=== PATIENT | female | born 1995 | race Caucasian/White ===

== ENCOUNTER 2022-02-19 08:10 | Emergency (ER) | payer OTHER, SELFPAY ==
--- NOTE | 2022-02-19 08:13 | ED.URI ---
HPI - URI/Sore Throat General Chief Complaint: Upper Respiratory Infection Stated Complaint: Chest Congestion/Headache Time Seen by Provider: 02/19/22 08:14 Source: patient and RN notes reviewed History of Present Illness HPI Narrative: patient is a 26-year-old female presents to urgent care with complaints of congestion and headache. Patient states that symptoms started on Thursday and she has been using Mucinex and Vicks. Patient has had some chills and sweats without known fever. Denies any nausea or vomiting. Denies any history of ill contacts. No other acute complaints. No acute distress noted. Patient aware of the plan of care. Some parts of this dictation were generated by voice recognition software and may contain typographical and/or grammatical inaccuracies. Related Data Allergies Allergy/AdvReac Type Severity Reaction Status Date / Time No Known Allergies Allergy Verified 02/19/22 08:23 Review of Systems Review of Systems: CONSTITUTIONAL: reports of chills sweats with subjective fever EYES: Denies visual changes, redness, or discharge. ENT: Reports of sinus congestion, pressure. Reports postnasal drainage CARDIOVASCULAR: Denies chest pain, palpitations, or edema. RESPIRATORY: reports of cough dyspnea GASTROINTESTINAL: Denies abdominal pain, nausea, vomiting, or diarrhea. GENITOURINARY: Denies dysuria or hematuria. SKIN: Denies rash or itching. MUSCULOSKELETAL: Denies back pain, joint pain, or myalgia. NEUROLOGIC: Denies headache, numbness, or weakness. All other systems reviewed are negative, except as documented in HPI. PMFSH Comments At the time of my signature, I reviewed and agree with the nursing past medical, surgical, social, and family history. There is no relevant family history pertinent to the patient complaint. Exam Narrative: GENERAL: This is a well-nourished, well-developed patient, in no apparent distress. HEAD: normocephalic, atraumatic. EYES: PERRL. Sclera clear/white. Vision is grossly intact. EARS: External ears normal, auditory canals clear and without drainage, TMs normal without perforation. Hearing grossly intact. NOSE: External nose normal with no obvious nasal discharge, bilateral erythema nares with clear yellow rhinorrhea S THROAT: Mucous membranes moist, mild erythema in the posterior oropharynx with moderate postnasal drainage NECK: Neck supple, non-tender without lymphadenopathy CARDIOVASCULAR: Regular rate and rhythm without murmurs, gallops, or rubs. RESPIRATORY: Clear to auscultation. Breath sounds equal bilaterally. No wheezes, rales, or rhonchi. SKIN: warm, intact with no suspicious lesions or rash, good texture and turgor. NEURO: awake, alert, and oriented to person, place and time. There were no obvious focal neurologic abnormalities. EXTREMITIES: No clubbing, cyanosis, or edema. Course Course Level of Care: Express Care Visit Vital Signs Vital signs: Vital Signs Temperature 97.1 F L 02/19/22 08:18 Pulse Rate 98 02/19/22 08:18 Respiratory Rate 16 02/19/22 08:18 Blood Pressure 117/74 02/19/22 08:18 Pulse Oximetry 99 02/19/22 08:18 Oxygen Delivery Room Air 02/19/22 08:18 Temperature 97.1 F L 02/19/22 08:18 Pulse Rate 98 02/19/22 08:18 Respiratory Rate 16 02/19/22 08:18 Blood Pressure 117/74 02/19/22 08:18 Pulse Oximetry 99 02/19/22 08:18 Oxygen Delivery Room Air 02/19/22 08:18 reviewed MDM - URI/Sore Throat MDM Narrative Medical decision making narrative: advised patient to use a daily antihistamine such as Zyrtec or Claritin. Use Flonase and Benadryl prior to bedtime. Use a humidifier at night. If your concerns with COVID, would recommend waiting 3 days before using an [id number] COVID test. Quarantine is 5 days from symptom onset. Use Tylenol/ ibuprofen as needed. Complete the steroid regimen as prescribed. Would recommend continuing the Mucinex without Sudafed. Follow up with her PCP within 2-5
[2022-02-19 08:18] VITALS: BP 117/74; PULSE 98; RESP 16; TEMP 36.2; O2SAT 99
== END 2022-02-19 08:32 | disposition home or self-care (01) ==
PROVIDERS: Emergency Provider Nurse Practitioner Family; PCP Family Medicine
DX: J06.9 Acute upper respiratory infection, unspecified (principal)
CPT/HCPCS: 99203; G0463

== ENCOUNTER 2022-10-13 13:16 | Emergency (ER) | payer OTHER, SELFPAY ==
[2022-10-13 13:20] VITALS: BP 118/81; PULSE 84; RESP 20; TEMP 36.4; O2SAT 99
--- NOTE | 2022-10-13 13:53 | ED.NAVMDI ---
HPI - Nausea/Vomiting/Diarrhea General Chief complaint: Nausea/Vomiting/Diarrhea Stated complaint: nausea / diarrhea/fever/headache Time Seen by Provider: 10/13/22 13:53 Source: patient and RN notes reviewed Mode of arrival: ambulatory Limitations: no limitations History of Present Illness HPI Narrative: 27-year-old female presents with concern for 2 day history of nausea, vomiting, diarrhea. She also reports headache. She reports sweats. Denies fever, aches, chills. She denies known sick contacts. 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 She denies nasal congestion, rhinorrhea, sore throat, cough MD elicited complaint: nausea, vomiting and diarrhea Related Data Home Medications Medication Instructions Recorded Confirmed clonazepam 0.5 mg tablet mg 10/13/22 Allergies Allergy/AdvReac Type Severity Reaction Status Date / Time No Known Allergies Allergy Verified 02/19/22 08:23 Review of Systems Review of Systems: CONSTITUTIONAL: Denies malaise, chills, or fever. Reports sweats ENT: Denies rhinorrhea, congestion, sinus pain, otalgia or sore throat. CARDIOVASCULAR: Denies chest pain, palpitations, or edema. RESPIRATORY: Denies cough or dyspnea. GASTROINTESTINAL: Denies abdominal pain. Reports nausea, vomiting, diarrhea GENITOURINARY: Denies dysuria or hematuria. MUSCULOSKELETAL: Denies myalgia. NEUROLOGIC: Reports headache. All systems reviewed & are unremarkable except as noted in HPI and below PMFSH Comments At time of signature, agree with nursing past medical, surgical, social and family history. There is no relevant family history pertinent to the presenting complaint Exam Narrative: GENERAL: Well-appearing, well-nourished, and in no acute distress. HEAD: Normocephalic, atraumatic. EYES: PERRLA, conjunctivae clear, and EOMI. ENT: Nares clear, turbinates pink, no rhinorrhea or epistaxis. Mucous membranes moist. Oropharynx without edema, erythema, or lesions. Tonsils not enlarged and without exudate. NECK: Supple. No lymphadenopathy CHEST: Speaks in full sentences. No respiratory distress. HEART: Regular rate and rhythm. ABDOMEN: Soft, flat, nondistended, nontender. No guarding, rebound tenderness, or rigidity. No pulsatile masses. Bowel sounds present in all four quadrants. No organomegaly. No periumbilical tenderness. No Supra public tenderness or distension SKIN: Warm, dry, no rash. NEURO: Alert and oriented x3. PSYCH: Normal mood and affect Course Course Emergency Course: Patient is aware of diagnosis, understands and agrees to treatment plan. Anticipatory guidance given. Patient agrees to follow-up as directed and is aware of reasons to seek care at the emergency department. Portions of this record may have been created with voice recognition software Level of Care: Express Care Visit Vital Signs Vital signs: Vital Signs Temperature 97.5 F L 10/13/22 13:20 Pulse Rate 84 10/13/22 13:20 Respiratory Rate 20 10/13/22 13:20 Blood Pressure 118/81 10/13/22 13:20 Pulse Oximetry 99 10/13/22 13:20 Oxygen Delivery Room Air 10/13/22 13:20 Temperature 97.5 F L 10/13/22 13:20 Pulse Rate 84 10/13/22 13:20 Respiratory Rate 20 10/13/22 13:20 Blood Pressure 118/81 10/13/22 13:20 Pulse Oximetry 99 10/13/22 13:20 Oxygen Delivery Room Air 10/13/22 13:20 Reviewed. MDM - Nausea/Vomiting/Diarrhea MDM Narrative Medical decision making narrative: No evidence of pancreatitis, AAA, cholecystitis, choledocholithiasis, cholangitis, mesenteric ischemia, small bowel obstruction, diverticulitis, colitis, appendicitis, or pelvic etiology such as ovarian, TOA, or ectopic . Patient has no history of peptic ulcer, H. pylori, chronic aspirin NSAID or corticosteroid use, chronic alcohol use, no history of inflammatory bowel disease, no history of active abdominal infection or malignancy. Patient has no history of hernia or intra-abdominal surgeries, patient denies
== END 2022-10-13 14:05 | disposition home or self-care (01) ==
PROVIDERS: Emergency Provider Nurse Practitioner; PCP Family Medicine
DX: R11.2 Nausea with vomiting, unspecified (principal); R19.7 Diarrhea, unspecified
CPT/HCPCS: 99213; G0463

== ENCOUNTER 2024-01-14 19:15 | Emergency (ER) | payer BC, SELFPAY ==
[2024-01-14 19:25] VITALS: BP 125/76; PULSE 103; RESP 18; TEMP 36.1; O2SAT 100
--- NOTE | 2024-01-14 19:45 | ED_ITS ---
HPI - URI/Sore Throat General Chief Complaint: Upper Respiratory Infection Stated Complaint: sinus/throat/weak Time Seen by Provider: 01/14/24 19:32 Source: patient and RN notes reviewed Mode of arrival: ambulatory Limitations: no limitations History of Present Illness HPI Narrative: Patient presents today with a 2 day history of sinus pain, sore throat, cough, rhinorrhea. Denies fever shortness of breath. No history of asthma. She is a nonsmoker. She is 11 weeks . She took 1 dose of Emergen-C without relief. Related Data Allergies Allergy/AdvReac Type Severity Reaction Status Date / Time No Known Allergies Allergy Verified 02/19/22 08:23 Review of Systems Review of Systems: CONSTITUTIONAL: Denies body aches, fever, chills, or sweats. EYES: Denies visual changes, redness, or discharge. ENT: Denies congestion, or otalgia.+ rhinorrhea, sore throat, sinus pain CARDIOVASCULAR: Denies chest pain, palpitations, or edema. RESPIRATORY: Denies dyspnea.+ cough GASTROINTESTINAL: Denies abdominal pain, nausea, vomiting, or diarrhea. GENITOURINARY: Denies dysuria or hematuria. SKIN: Denies rash, itching, or wounds. MUSCULOSKELETAL: Denies back pain, joint pain, or myalgia. NEUROLOGIC: Denies headache, numbness, tingling, or weakness. PSYCH: Denies depression or anxiety. PMFSH Comments At time of signature, I have reviewed and agree with nursing past medical, surgical, social and family history unless otherwise noted. Please see nursing chart for further information. There is no relevant family history pertinent to the presenting complaint Exam Narrative: GENERAL: Well-appearing, well-nourished, and in no acute distress. HEAD: Normocephalic, atraumatic. EYES: EOMI. No redness or drainage. Conjunctivae normal. ENT: Mucous membranes pink and moist. Nares clear. No rhinorrhea. TMs normal bilaterally. Throat erythematous and mildly edematous. No exudate. Uvula midline. NECK: Normal AROM. Supple. No lymphadenopathy. CHEST: No respiratory distress. Clear to auscultation. HEART: Regular rate and rhythm. No murmur appreciated. EXTREMITIES: Normal range of motion. No edema. SKIN: Warm, dry, no rash. Capillary refill normal. Normal skin turgor. NEURO: No focal deficits. Alert and oriented x3. Gait steady. PSYCH: Normal affect. No signs of depression or anxiety. Course Course Level of Care: Express Care Visit Vital Signs Vital signs: Vital Signs Temperature 97 F L 01/14/24 19:25 Pulse Rate 103 H 01/14/24 19:25 Respiratory Rate 18 01/14/24 19:25 Blood Pressure 125/76 01/14/24 19:25 Pulse Oximetry 100 01/14/24 19:25 Temperature 97 F L 01/14/24 19:25 Pulse Rate 103 H 01/14/24 19:25 Respiratory Rate 18 01/14/24 19:25 Blood Pressure 125/76 01/14/24 19:25 Pulse Oximetry 100 01/14/24 19:25 Reviewed MDM - URI/Sore Throat MDM Narrative Medical decision making narrative: Testing negative. Strep culture pending. Symptoms likely viral in etiology. Discussed [id number] medication use and duration of illness. No prescription medications indicated at this time. Anticipatory guidance given. Differential Diagnosis Differential diagnosis: Likely upper respiratory infection, viral infection, influenza, pharyngitis and other (Strep throat, COVID) Lab Data Attestation: I reviewed the patient's lab results. Critical Care Time Critical Care Time Critical Care Time: No Discharge Plan Discharge Clinical Impression: Upper respiratory infection Qualifiers: URI type: unspecified URI Qualified Code(s): J06.9 - Acute upper respiratory infection, unspecified Patient Disposition: Home, Self-Care Condition: Stable Instructions: Upper Respiratory Infection (DC) Additional Instructions: Your influenza, COVID, and strep swabs are negative today at [facility]. You will be notified in a few days if the culture comes back positive for strep, and appropriate antibiotics will be called in for you at that time. Your symptoms are likely due to a viral illness, which is not treated with antibiotics. Viral symptoms can be present for up to 7-10 days. Take Tylenol for fever or pain. Rest and stay hydrated. Follow up with your PCP in 7 days if symptoms are not improving. Go to the ER immediately if you have any difficulty breathing or swallowing. Follow-up/Referrals: PHYSICIAN,CONSUMER INSIGHT ANALYST [Primary Care Provider] - Stand Alone Forms: Work/School Release IP Time of Disposition: 19:50
[2024-01-14 19:52] LABS: EDCOVIDSCREEN Negative (Negative)
[2024-01-14 19:57] LABS: EDINFLUASCREEN Negative (Negative); EDINFLUBSCREEN Negative (Negative); EDSTREPNEGPOS1 Negative (Negative)
== END 2024-01-14 19:57 | disposition home or self-care (01) ==
PROVIDERS: Emergency Provider Nurse Practitioner
DX: O99.511 Diseases of the respiratory system complicating pregnancy, first trimester (principal); Z3A.11 11 weeks gestation of pregnancy; J06.9 Acute upper respiratory infection, unspecified; Z20.822 Contact with and (suspected) exposure to COVID-19
CPT/HCPCS: 87081; 87426; 87804; 87880; 99213; G0463

== ENCOUNTER 2024-04-18 09:12 | Emergency (ER) | payer BC, SELFPAY ==
[2024-04-18 09:16] VITALS: BP 122/62; PULSE 95; RESP 16; TEMP 36.2; O2SAT 100
--- OUTSIDE RECORDS SUMMARY | 2024-04-18 09:46 | XMS_ITS | Referral Summary ---
Author Organization [facility] Medical Office Building [address] Address [address] [place] [address] Care Team Providers Care Wireless Retail Manager Name Role Phone Javier Heredia MD Unavailable [phone] Kyleigh Castro MD Unavailable [phone], Physician Primary Care Provider [phone] Encounters Date Type Department Care Team Description 04/06/2024 Telephone [facility] [place] [address] [facility] [address] [place] [address] Alivia Casey MA from Last 3 Months Allergies No known active allergies Medications No known medications Active Problems Problem Noted Date Diagnosed Date Encounter for wellness examination 04/05/2024 Encounter to establish care 04/05/2024 Mass of soft tissue of foot 11/27/2021 [place] or callus 05/07/2021 Assessment & Plan (05/18/2021 4:39 PM CDT): Referred to podiatry for further eval/mgmt. control counseling 11/06/2020 Assessment & Plan (11/06/2020 3:04 PM CDT): Patient is not on any control. I did briefly world travel counselor her that she is on multiple medications that need to be managed if she would become her shoes thinking about becoming . Patient denies that she is planning any . She used to see Dr. Heredia at [facility] for gynecology. Referral placed back to Dr. Wong for routine care and to discuss control. Did briefly discuss control pills that patient does not wish to start them at this time Moderate episode of recurrent major depressive d isorder 06/16/2018 Assessment & Plan (11/18/2021 1:40 PM CDT): Weaned off of all medications under the care of her psychiatrist. 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 Keep merlyn appt with psychiatry. Assessment & Plan (05/18/2021 4:40 PM CDT): Stable. Cont. Current prescription medications. Assessment & Plan (04/17/2020 12:32 PM PLANTING MACHINE OPERATOR): Stable. Cont. Current meds. Assessment & Plan (10/10/2019 4:25 PM CDT): Stable. Cont. Current meds. Cont counseling. Assessment & Plan (04/11/2019 7:52 PM PLANTING MACHINE OPERATOR): Clinically improved, continue current meds. Assessment & Plan (06/16/2018 10:14 AM CDT): Psychological condition is newly identified. Regular aerobic exercise. Medication changes per orders. Referral to psychological counseling. Psychological condition will be reassessed at the next regular appointment. Increased Lexapro 10 mg qd to 20 mg qd. Continue clonazepam 0.5 mg bid prn Flexural eczema 06/16/2018 Assessment & Plan (06/16/2018 10:16 AM CDT): Rx given, will follow, take a one-week drug-free holiday after 2 wks of daily use. Class 1 obesity due to exces s calories without serious comorbidity with body mass index (BMI) of 31.0 to 31.9 in adult 06/16/2018 Assessment & Plan (05/18/2021 4:40 PM CDT): Weight reduction, daily exercise and dietary modifications recommended. Assessment & Plan (10/10/2019 4:26 PM CDT): Weight reduction, daily exercise and dietary modifications recommended. Assessment & Plan (04/11/2019 7:53 PM PLANTING MACHINE OPERATOR): Worsening. Encouraged patient to decrease weight, increase daily exercise, and modify diet. Assessment & Plan (09/21/2018 12:44 PM CDT): Slowly improving. Encouraged patient to decrease weight, increase daily exercise, and modify diet. Assessment & Plan (06/16/2018 10:16 AM CDT): Obesity is unchanged. Discussed the patient's BMI. The BMI is above average; BMI management plan is completed. General weight loss/lifestyle modification strategies discussed (elicit support from others; identify saboteurs; non-food rewards, etc). Chronic bilateral thoracic back pain 08/11/2017 Assessment & Plan (08/11/2017 1:26 PM CDT): Cont Aleve prn pain. Heating pads 20 mins/hr. ROM exercises recommended. Chronic neck pain 08/11/2017 Assessment & Plan (08/11/2017 1:26 PM CDT): Cont Aleve prn pain. Heating pads 20 mins/hr. ROM exercises recommended. Pendulous breast 08/11/2017 Assessment & Plan (08/11/2017 1:26 PM CDT): Referred to Plastic Surgeon to discuss any possible options. PTSD (post-traumatic stress disorder) 06/19/2017 Assessment & Plan (10/10/2019 4:26 PM CDT): Stable. Cont. Current meds. Assessment & Plan (04/11/2019 7:52 PM PLANTING MACHINE OPERATOR): Clinically improved, continue current meds. Assessment & Plan (06/16/2018 10:14 AM CDT): Psychological condition is improving with treatment. Regular aerobic exercise. Referral to psychological counseling. Psychological condition will be reassessed at the next regular appointment. Assessment & Plan (03/18/2018 3:56 PM PLANTING MACHINE OPERATOR): Psychological condition is improving with treatment. Continue current treatment regimen. Regular aerobic exercise. Psychological condition will be reassessed at the next regular appointment. Generalized anxiety disorder 07/09/2013 Assessment & Plan (11/18/2021 1:40 PM CDT): Weaned off of all medications under the care of her psychiatrist. 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 Keep merlyn appt with psychiatry Assessment & Plan (05/18/2021 4:40 PM CDT): Stable. Cont. Current prescription medications. Assessment & Plan (01/08/2021 2:20 PM PLANTING MACHINE OPERATOR): Stable. Doing well with escitalopram. Continues to f/u with psychiatry and feels she is stable with her other medications. Will f/u in April with Dr. Shepard as scheduled. Assessment & Plan (11/06/2020 3:03 PM CDT): Was just discharged from inpatient care for depression and anxiety. States that she is doing better. She has a follow-up with psychiatry scheduled in [place] Assessment & Plan (04/17/2020 12:32 PM PLANTING MACHINE OPERATOR): Stable. Cont. Current meds. Assessment & Plan (10/10/2019 4:26 PM CDT): Waxing and waning due to COVID-19. Cont counseling and medications. Assessment & Plan (04/11/2019 7:52 PM PLANTING MACHINE OPERATOR): Clinically improved, continue current meds. Assessment & Plan (06/16/2018 10:13 AM CDT): Psychological condition is improving with treatment. Continue current treatment regimen. Regular aerobic exercise. Referral to psychological counseling. Psychological condition will be reassessed at the next regular appointment. Increased Lexapro 10 mg qd to 20 mg qd. Continue clonazepam 0.5 mg bid prn Assessment & Plan (03/18/2018 3:56 PM PLANTING MACHINE OPERATOR): Psychological condition is improving with treatment. Continue current treatment regimen. Regular aerobic exercise. Psychological condition will be reassessed at the next regular appointment. Assessment & Plan (04/23/2017 11:39 AM PLANTING MACHINE OPERATOR): Clinically improving. Cont current medications. Keep merlyn appt with psychiatry in May 2017. Assessment & Plan (03/27/2017 11:43 AM PLANTING MACHINE OPERATOR): Referred to Psychiatry for further eval/Tx. Patient was concerned about time- span in getting in to see a psychiatrist, therefore, I gave her two names. Will start on Klonopin 0.5 mg bid prn and Lexapro 10mg qam. Close f/u, RTC in 4 wks. Patient encouraged to go to nearest ER if she felt she would be a harm to herself or anyone else. Patient assured me that she does not have any suicidal ideations. Resolved Problems Problem Noted Date Diagnosed Date Resolved Date Annual physical exam 11/06/2020 022 Assessment & Plan (11/06/2020 3:05 PM CDT): -Recommended: Healthy diet. Avoiding junk food/fast food. -30 minutes of exercise most days of the week. Increase to 45 minutes for weight loss. Immunizations:recommended influenza vaccine. Patient declines at this time increase physical activity, follow low fat diet, call if any problems Follow-up in 1 year. Mild episode of recurrent ma radha depressive disorder 07/09/2013 05/18/2021 Overview (05/28/2016): Migraine Immunizations Immunization Administration Dates Next Due DTaP 09/12/1998, 5,1993,07/31 HPV, Quadrivalent 05/07/2011,10/05/2008,09/29/19 08 Hep A, Adult 09/29/2007 Hep A, Pediatric 10/05/2008 Hep B Vaccine 1993,1993,1993 Hib (HbOC) 05/17/1995 IPV 09/12/1998, 5,1993,05/16 Influenza, Split 12/30/2011 Influenza, Unspecified 03/11/2023(Deferr ed: Patient Refused),03/11/2022(Deferred: Patient Refused),11/18/2021(Deferred: Patient Refused),05/07/2021(Deferred: Patient Refused),01/08/2021(Deferred: Patient Refused),11/24/2019(Deferred: Patient Refused),11/23/2018,11/23/2017 MMR 09/12/1998,07/23/1994 Meningococcal Polysaccharide (Menomune) 09/29/2007 Tdap 01/03/2017 Social History Tobacco Use Types Packs/Day Years Used Date Smoking Tobacco: Every Day Vaping Smokeless Tobacco: Never Tobacco Cessation:Ready to Q uit: Not Asked; Counseling Given: Not Answered Comments:Smoking History Packs/day: 0.5 Packs Alcohol Use Standard Drinks/Week Comments Yes 0 (1 standard drink = 0.6 oz pur e alcohol) PHQ-2 Answer Date Recorded PHQ-2 Total Score (If total score is 3 or more points, staff should administer the PHQ-9) 0 03/11/2023 Comments No Sex and Gender Information Value Date Recorded Sex Assigned at Not on file Legal Sex Female 7:18 PM PLANTING MACHINE OPERATOR Gender Identity Not on file Sexual Orientation Not on file Last Filed Vital Signs Vital Sign Reading Time Taken Comments Blood Pressure 118/66 03/11/2023 11:37 AM PLANTING MACHINE OPERATOR Pulse 90 03/11/2023 11:37 AM PLANTING MACHINE OPERATOR Temperature 36.8 C (98.2 F) 03/11/2023 11:37 AM PLANTING MACHINE OPERATOR Respiratory Rate 18 03/11/2023 11:37 AM PLANTING MACHINE OPERATOR Oxygen Saturation 99% 03/11/2023 11:37 AM PLANTING MACHINE OPERATOR Inhaled Oxygen Concentration - - Weight 92 kg (202 lb 14.4 oz) 03/11/2023 11:37 A M PLANTING MACHINE OPERATOR Height 170.2 cm (5' 7 ) 03/11/2023 11:37 AM PLANTING MACHINE OPERATOR Body Mass Index 31.78 03/11/2023 11:37 AM PLANTING MACHINE OPERATOR Plan of Treatment Not on file Procedures Procedure Name Priority Date/Time Associated Diagnosis Comments PAP SMEAR WITH HPV Routine 11/19/2020 from Last 3 Months or Most Recently Relevant to Health Maintenance Results * HM PAP SMEAR WITH HPV (11/19/2020) Scribed Pap Smear w/HPV Normal us Javier Heredia MD HEALTH MAINTENANCE Fin al Result from Last 3 Months or Most Recently Relevant to Health Maintenance Insurance [facility] WORKERS COMPENSATION GENERIC Care Teams Wireless Retail Manager Relationship Specialty Start Date End Date No, Physician PCP - General 06/24/23 Javier Heredia MD [address] [place] [address] [address]Z [address] [id number] Manager Sales Obstetrics and Gynecology 10/10/19 Kyleigh Castro MD [address] [place] [address] Psychiatry 05/07/21
--- OUTSIDE RECORDS SUMMARY | 2024-04-18 09:46 | XMS_ITS | Clinical Summary ---
Author Organization [facility] Medical Office Building [address] Address [address] [place] [address] Care Team Providers Care It Infrastructure Consultant Name Role Phone Javier Heredia MD Unavailable Kyleigh Castro MD Unavailable [phone] No, Physician Primary Care Provider [phone] Allergies No known active allergies Medications No known medications Active Problems Problem Noted Date Diagnosed Date Encounter for wellness examination 04/05/2024 Encounter to establish care 04/05/2024 Mass of soft tissue of foot 11/27/2021 [place] or callus 05/07/2021 Assessment & Plan (05/18/2021 4:39 PM CDT): Referred to podiatry for further eval/mgmt. control counseling 11/06/2020 Assessment & Plan (11/06/2020 3:04 PM CDT): Patient is not on any control. I did briefly professor of counseling her that she is on multiple medications that need to be managed if she would become her shoes thinking about becoming . Patient denies that she is planning any . She used to see Dr. Hereida at [facility] for gynecology. Referral placed back to Dr. [...] medications. Assessment & Plan (04/17/2020 12:32 PM MILLING MACHINIST): Stable. Cont. Current meds. Assessment & Plan (10/10/2019 4:25 PM CDT): Stable. Cont. Current meds. Cont counseling. Assessment & Plan (04/11/2019 7:52 PM MILLING MACHINIST): Clinically improved, continue current meds. Assessment & [...] recommended. Assessment & Plan (04/11/2019 7:53 PM MILLING MACHINIST): Worsening. Encouraged patient to decrease weight, increase [...] meds. Assessment & Plan (04/11/2019 7:52 PM MILLING MACHINIST): Clinically improved, continue current meds. Assessment & Plan (06/16/2018 10:14 AM CDT): Psychological condition is improving with treatment. Regular aerobic exercise. Referral to psychological counseling. Psychological condition will be reassessed at the next regular appointment. Assessment & Plan (03/18/2018 3:56 PM MILLING MACHINIST): Psychological condition is improving with treatment. Continue [...] medications. Assessment & Plan (01/08/2021 2:20 PM MILLING MACHINIST): Stable. Doing well with escitalopram. Continues to f/u with psychiatry and feels she is stable with her other medications. Will f/u in April with Dr. Shepard as scheduled. Assessment & Plan (11/06/2020 3:03 PM CDT): Was just discharged from inpatient care for depression and anxiety. States that she is doing better. She has a follow-up with psychiatry scheduled in [place] Assessment & Plan (04/17/2020 12:32 PM MILLING MACHINIST): Stable. Cont. Current meds. Assessment & Plan (10/10/2019 4:26 PM CDT): Waxing and waning due to COVID-19. Cont counseling and medications. Assessment & Plan (04/11/2019 7:52 PM MILLING MACHINIST): Clinically improved, continue current meds. Assessment & Plan (06/16/2018 10:13 AM CDT): Psychological condition is improving with treatment. Continue current treatment regimen. Regular aerobic exercise. Referral to psychological counseling. Psychological condition will be reassessed at the next regular appointment. Increased Lexapro 10 mg qd to 20 mg qd. Continue clonazepam 0.5 mg bid prn Assessment & Plan (03/18/2018 3:56 PM MILLING MACHINIST): Psychological condition is improving with treatment. Continue current treatment regimen. Regular aerobic exercise. Psychological condition will be reassessed at the next regular appointment. Assessment & Plan (04/23/2017 11:39 AM MILLING MACHINIST): Clinically improving. Cont current medications. Keep merlyn appt with psychiatry in May 2017. Assessment & Plan (03/27/2017 11:43 AM MILLING MACHINIST): Referred to Psychiatry for further eval/Tx. Patient [...] depressive disorder 07/09/2013 05/18/2021 Overview (05/28/2016): Migraine Encounters Date Type Department Care Team Description 04/06/[address] [facility] Primary Care at [address] [place] [address] Alivia Casey MA from Last 3 Months Immunizations Immunization Administration Dates Next Due DTaP 09/12/1998, 5,1993,07/31 HPV, Quadrivalent 05/07/2011,10/05/2008,09/29/19 08 Hep A, Adult 09/29/2007 Hep A, Pediatric 10/05/2008 Hep B Vaccine 1993,1993,1993 Hib (HbOC) 05/17/1995 IPV 09/12/1998, 5,1993,05/16 Influenza, Split 12/30/2011 Influenza, Unspecified 03/11/2023(Deferr ed: Patient Refused),03/11/2022(Deferred: Patient Refused),11/18/2021(Deferred: Patient Refused),05/07/2021(Deferred: Patient Refused),01/08/2021(Deferred: Patient Refused),11/24/2019(Deferred: Patient Refused),11/23/2018,11/23/2017 MMR 09/12/1998,07/23/1994 Meningococcal Polysaccharide (Menomune) 09/29/2007 Tdap 01/03/2017 Surgical History Surgery Date Site/Laterality Comments OTHER SURGICAL HISTORY 2012 LGSIL on pap smear: MAKENNA I on biopsy Medical History Medical History Date Comments Anxiety disorder Anxiety Hx Other Medical Seasonal allerg ies and sinus problems Hx Other Medical Headache, migra ine Hx Other Medical 2012 LGSIL on pap sm ear Allergic Anxiety Depression Family History Medical History Relation Name Comments Heart attack Maternal Grandfather Myocard ial infarction; Stroke Maternal Grandfather Stroke; Anxiety disorder Maternal Grandmother Men lamine Illness -anxiety; Migraines Maternal Grandmother Migrain es; Alcohol abuse Mother Alcoholism; Anxiety disorder Mother Mental Illn ess -anxiety; Diabetes type II Mother Diabetes -T ype 2; Diabetes type II Mother's Brother 1 Diabe faizan -Type 2; Coronary artery disease Mother's Brother 2 Coronary artery disease, premature; Hyperlipidemia Other 1 Family histor y of Hyperlipidemia; Hypertension Other 2 Hypertension; Relation Name Status Comments Maternal Grandfather Maternal Grandmother Mother Mother's Brother 1 Mother's Brother 2 Other 1 Other 2 Social History Tobacco Use Types Packs/Day Years [...] on file Legal Sex Female 7:18 PM MILLING MACHINIST Gender Identity Not on file Sexual Orientation Not on file Obstetrics History Last Filed Vital Signs Vital Sign Reading Time Taken Comments Blood Pressure 118/66 03/11/2023 11:37 AM MILLING MACHINIST Pulse 90 03/11/2023 11:37 AM MILLING MACHINIST Temperature 36.8 C (98.2 F) 03/11/2023 11:37 AM MILLING MACHINIST Respiratory Rate 18 03/11/2023 11:37 AM MILLING MACHINIST Oxygen Saturation 99% 03/11/2023 11:37 AM MILLING MACHINIST Inhaled Oxygen Concentration - - Weight 92 kg (202 lb 14.4 oz) 03/11/2023 11:37 A M MILLING MACHINIST Height 170.2 cm (5' 7 ) 03/11/2023 11:37 AM MILLING MACHINIST Body Mass Index 31.78 03/11/2023 11:37 AM MILLING MACHINIST Plan of Treatment Health Maintenance Due Date Last Done Comments Hepatitis C Screening 1993 Pneumococcal vaccine <65 (1 of 2 - PCV) 2012 Influenza Vaccine (#1) 2023 9, 11/23/2017, 12/30/2011 Depression Screening 03/11/2024 03/11/2023, 11/27/2021, 11/18/2021, Additional history exists Regular Well Visit/Exam 18-64 03/11/2024, 11/18/2021, 11/05/2020, Additional history exists Cervical Cancer Screening-Pa p Smear 11/19/2025 11/19/2020, 08/03/2014, 06/22/2012 Cervical Cancer Screening 11/19/20252020, 08/03/2014, 06/22/2012 DTaP/Tdap/Td Vaccine (6 - Td or Tdap) 01/03/2027 01/03/2017, 09/12/1998, 10/09/1994, Additional history exists Hepatitis B Screening Completed 1993 , 1993, 1993 HPV Vaccines Completed 05/07/2011, 09/23, 09/29/2007 Varicella Vaccines Discontinued Procedures Procedure Name Priority Date/Time Associated Diagnosis Comments HM PAP SMEAR WITH HPV Routine 11/19/2020 from Last 3 Months or Most Recently Relevant to Health Maintenance Results * HM PAP SMEAR WITH HPV (11/19/2020) Scribed Pap Smear w/HPV Normal us Javier Heredia MD HEALTH MAINTENANCE Fin al Result from Last 3 Months or Most Recently Relevant to Health Maintenance Insurance * Guarantor: Lynda Sharma Account Type Relation to Patient Date of Phone Billing Address Personal/Family Self 1995 [address] [place] [address] [facility] [employer] [facility] Care Teams It Infrastructure Consultant Relationship Specialty Start Date End Date No, Physician PCP - General 06/24/23 Javier Heredia MD [address] [place] [address] DR MICHAEL Hendrix [address] [id number] Manager Of Sales Obstetrics and Gynecology 10/10/19 Kyleigh Castro MD [address] [place] [id number] Psychiatry 05/07/21
--- OUTSIDE RECORDS SUMMARY | 2024-04-18 09:46 | XMS_ITS | Clinical Summary ---
Author Organization [facility] Address [address] [place] [address] Phone Care Team Providers Care Filter Press Supervisor Name Role Phone Angie Shepard DO Primary Care Provider [phone] Allergies No known active allergies Medications HYDROcodone-mikey taminophen (NORCO) 5-325 MG Tablet Take 1 Tab by mouth every 6 hours as needed for Moderate or more severe pain. 12 Tab 07/10/2019 Active naproxen (NAPROSYN) 500 MG Tablet Take 1 Tab by mouth 2 times daily as needed for Moderate or more severe pain. 20 Tab 07/10/2019 Active Encounters Date Type Department Care Team Description 03/23/2024 8:33 AM TUBE HANDLER - 03/23/2024 11:59 PM TUBE HANDLER [facility] Ultrasound [address] [place] [id number] Javier Heredia Discharge Disposition: Discharged to home or Selfcare 03/21/2024 Travel 03/01/2024 Transcribe Orders [facility] Central Scheduling [address] [place] [address] Javier Heredia Encounter for supervision of normal , antepartum, unspecified (Primary Dx) from Last 3 Months Social History Tobacco Use Types Packs/Day Years Used Date Smoking Tobacco: Former Cigarettes Smokeless Tobacco: Never Alcohol Use Standard Drinks/Week Comments Yes 0 (1 standard drink = 0.6 oz pur e alcohol) Comments No Sex and Gender Information Value Date Recorded Sex Assigned at Not on file Legal Sex Female 1:49 PM CDT Gender Identity Not on file Sexual Orientation Not on file Last Filed Vital Signs Vital Sign Reading Time Taken Comments Blood Pressure 120/84 07/10/2019 3:47 PM CDT Pulse 99 07/10/2019 3:47 PM CDT Temperature 35.9 C (96.6 F) 07/10/2019 1:51 PM CDT Respiratory Rate 19 07/10/2019 3:47 PM CDT Oxygen Saturation 97% 07/10/2019 3:47 PM CDT Inhaled Oxygen Concentration - - Weight 108.9 kg (240 lb) 07/10/2019 1:54 PM CDT Height 170.2 cm (5' 7 ) 07/10/2019 1:54 PM CDT Body Mass Index 37.59 07/10/2019 1:54 PM CDT Plan of Treatment Health Maintenance Due Date Last Done Comments Hepatitis C Virus (HCV) Screening 1993 Pap Smear 2014 Cervical Cancer Screening (CCS) 2023 HPV/Cotest 2023 Influenza Immunization (#1) 10/25/20230 02/2018, 11/23/2017, 01/03/2017 SARS-COV-2 Immunization ( season) 2023 Respiratory Syncytial Virus (RSV) Immunization (Adult) (1 - 1-dose 75+ series) 2068 Hepatitis B Immunization Completed 994, 1993, 1993 Meningococcal Immunization (ACWY) Aged Out 09/29/2007 No longer eligible based on patient's age to complete this topic Human Papillomavirus (HPV) Immunization Discontinued 05/07/2011, 10/05/2008, 09/29/2007 DTaP/Tdap/Td Immunization Discontinued 2016, 09/12/1998, 10/09/1994, Additional history exists TdaP Immunization Completed 01/03/2017 Pneumococcal Immunization Combined Aged Out No longer eligible based on patient's age to complete this topic Rotavirus Immunization Aged Out No lo nger eligible based on patient's age to complete this topic Procedures Procedure Name Priority Date/Time Associated Diagnosis Comments US PREG UTRS> 14 WKS EA SGL FETS & MOM EVAL Routine 03/23/2024 10:29 AM TUBE HANDLER Encounter for supervision of normal , antepartum, unspecified from Last 3 Months Results * US PREG UTRS> 14 WKS EA SGL FETS & MOM EVAL (03/23/2024 10:29 AM TUBE HANDLER) Anatomical Region Laterality Modality OB N/A Ultrasound 03/25/2024 8:57 AM TUBE HANDLER Impressions 03/25/2024 9:00 AM TUBE HANDLER IMPRESSION: 1. Single uterine estimated at 20 weeks 2 days with an ROSEMARY 08/08/2024. 2. Cephalic presentation. 3. Growth ratios are normal. 4. The renal kidneys are not shown. The four-chamber heart view is not clearly assessed, attention on follow-up imaging. 5. Otherwise the assessed anatomy is normal. Narrative 03/25/2024 9:00 AM TUBE HANDLER EXAM DESCRIPTION: US PREG UTRS> 14 WKS EA SGL FETS and MOM EVAL REASON FOR STUDY: Second trimester OB ultrasound for anatomy. TECHNIQUE: Complete transabdominal obstetric ultrasound was performed. COMPARISON: None. FINDINGS: The indicated clinical age is 20 weeks 6 days with an ROSEMARY 08/04/2024. Single intrauterine with cephalic presentation. Placenta is anterior with no demonstrated placenta previa. Note is made of prominent vascular structures and probable venous lakes of the placenta. heart rate is 130 beats per minute. Amniotic fluid index was not specifically measured but subjectively normal. S = Seen without gross abnormality A = Abnormal NC = Not clearly seen NS = Not seen on current exam PS = Previously seen anatomic survey: Intracranial anatomy: S Nose/lips: S Spine: S Four-chamber heart: NC Diaphragm: S Stomach: S Kidneys: NS , the renal arteries are noted. Bladder: S 3-vessel cord: S cord insertion: S Upper extremities: S Lower extremities: S measurements: Biparietal diameter: 4.7 cm corresponding to 20 weeks 2 days. Head circumference: 17.74 cm corresponding to 20 weeks 2 days. Abdominal circumference: 14.50 cm corresponding to 19 weeks 6 days. Femur length: 3.29 cm corresponding to 20 weeks 2 days. Estimated age based on this ultrasound is 20 weeks 2 days with an ROSEMARY 08/08/2024. Estimated weight 329 g +/-49 g (12 ounces +/-2 ounces) which is at the 12th percentile for LMP. THIS IS AN ELECTRONICALLY VERIFIED FINAL REPORT 03/25/2024 8:57 AM - Electronically signed by Fidel Swanson M.D. CH: Report ID: [id number] Reading Location: [id number] Procedure Note Fidel Swanson Jr., MD - 03/25/2024 EXAM DESCRIPTION: US PREG UTRS> 14 WKS EA SGL FETS and MOM EVAL REASON FOR STUDY: Second trimester OB ultrasound for anatomy. TECHNIQUE: Complete transabdominal obstetric ultrasound was performed. COMPARISON: None. FINDINGS: The indicated clinical age is 20 weeks 6 days with an ROSEMARY 08/04/2024. Single intrauterine with cephalic presentation. Placenta is anterior with no demonstrated placenta previa. Note is made of prominent vascular structures and probable venous lakes of the placenta. heart rate is 130 beats per minute. Amniotic fluid index was not specifically measured but subjectively normal. S = Seen without gross abnormality A = Abnormal NC = Not clearly seen NS = Not seen on current exam PS = Previously seen anatomic survey: Intracranial anatomy: S Nose/lips: S Spine: S Four-chamber heart: NC Diaphragm: S Stomach: S Kidneys: NS , the renal arteries are noted. Bladder: S 3-vessel cord: S cord insertion: S Upper extremities: S Lower extremities: S measurements: Biparietal diameter: 4.7 cm corresponding to 20 weeks 2 days. Head circumference: 17.74 cm corresponding to 20 weeks 2 days. Abdominal circumference: 14.50 cm corresponding to 19 weeks 6 days. Femur length: 3.29 cm corresponding to 20 weeks 2 days. Estimated age based on this ultrasound is 20 weeks 2 days with an ROSEMARY 08/08/2024. Estimated weight 329 g +/-49 g (12 ounces +/-2 ounces) which is at the 12th percentile for LMP. THIS IS AN ELECTRONICALLY VERIFIED FINAL REPORT 03/25/2024 8:57 AM - Electronically signed by Fidel Swanson M.D. CH: SAMANTHA Report ID: [id number] Reading Location: [id number] IMPRESSION: 1. Single uterine estimated at 20 weeks 2 days with an ROSEMARY 08/08/2024. 2. Cephalic presentation. 3. Growth ratios are normal. 4. The renal kidneys are not shown. The four-chamber heart view is not clearly assessed, attention on follow-up imaging. 5. Otherwise the assessed anatomy is normal. us [facility]avier [facility] Final Result from Last 3 Months Insurance [facility] Care Teams Filter Press Supervisor Relationship Specialty Start Date End Date Angie Shepard DO [address] [facility] [address]Z [address] [place] [id number] PCP - General Family Medicine 07/10/19
[2024-04-18 09:48] LABS: EDCOVIDSCREEN Negative (Negative); EDINFLUASCREEN Positive (Negative); EDINFLUBSCREEN Negative (Negative)
--- NOTE | 2024-04-18 10:03 | ED.URI ---
HPI - URI/Sore Throat General Chief Complaint: Upper Respiratory Infection Stated Complaint: bodyaches,chest tight,HANSEN Time Seen by Provider: 04/18/24 10:01 Source: patient and RN notes reviewed Mode of arrival: ambulatory Limitations: no limitations History of Present Illness HPI Narrative: 29-year-old female who is 24 weeks presents with concern for runny nose, chest tightness, chest congestion, headache, body aches. Reports symptoms started 3 days ago. She has an appointment with any primary care provider on Thursday. MD elicited complaint: cough Related Data Allergies Allergy/AdvReac Type Severity Reaction Status Date / Time No Known Allergies Allergy Verified 04/18/24 09:30 Review of Systems Review of Systems: CONSTITUTIONAL: Reports malaise. Denies fever. EYES: Denies visual changes, redness, or discharge. ENT: Reports rhinorrhea, congestion CARDIOVASCULAR: Denies chest pain, palpitations, or edema. RESPIRATORY: Reports cough, chest congestion, feeling of dyspnea. GASTROINTESTINAL: Denies abdominal pain, nausea, vomiting, diarrhea SKIN: Denies rash or itching. MUSCULOSKELETAL: Reports myalgia. NEUROLOGIC: Reports headache. All systems reviewed & are unremarkable except as noted in HPI and below PMFSH Comments At time of signature, agree with nursing past medical, surgical, social and family history. There is no relevant family history pertinent to the presenting complaint Exam Narrative: GENERAL: Nontoxic-appearing, well-nourished, and in no acute distress. HEAD: Normocephalic EYES: PERRLA, conjunctivae clear ENT: Nares clear. Mucous membranes moist. TM pearly merida with dull light reflex bilaterally; no tragal tenderness. Oropharynx not erythematous without lesions. Tonsils not enlarged and without exudate, no drooling, no hoarseness, no trismus, uvula midline. NECK: Supple. No lymphadenopathy CHEST: Clear to auscultation, breath sounds equal. No wheezing, rhonchi, rales, or stridor. No respiratory distress, speaks in full sentences. HEART: Regular rate and rhythm. No murmur heard. SKIN: Warm, dry, no rash. NEURO: Alert and oriented x3. PSYCH: Normal mood and affect Course Course Emergency Course: Patient is aware of diagnosis, understands and agrees to treatment plan. Anticipatory guidance given. Patient agrees to follow-up as directed and is aware of reasons to seek care at the emergency department. Portions of this record may have been created with voice recognition software Level of Care: Express Care Visit Vital Signs Vital signs: Vital Signs Temperature 97.2 F L 04/18/24 09:16 Pulse Rate 95 04/18/24 09:16 Respiratory Rate 16 04/18/24 09:16 Blood Pressure 122/62 04/18/24 09:16 Pulse Oximetry 100 04/18/24 09:16 Oxygen Delivery Room Air 04/18/24 09:16 Temperature 97.2 F L 04/18/24 09:16 Pulse Rate 95 04/18/24 09:16 Respiratory Rate 16 04/18/24 09:16 Blood Pressure 122/62 04/18/24 09:16 Pulse Oximetry 100 04/18/24 09:16 Oxygen Delivery Room Air 04/18/24 09:16 Reviewed. MDM - URI/Sore Throat MDM Narrative Medical decision making narrative: Differential diagnosis considered: [place]rosco virus, strep pharyngitis, allergic rhinitis, upper respiratory tract infection, sinusitis, rhinosinusitis, nasopharyngitis. viral pharyngitis, otitis media, otitis externa, pneumonia, bronchitis, viral cough syndrome, viral syndrome, and influenza. Exam findings show no acute concerns or changes; patient is non-toxic appearing and is in no distress. Patient is appropriate for outpatient treatment and follow-up. Lab Data Attestation: I reviewed the patient's lab results. Labs: Lab Results 04/18/24 Range/Units 09:28 POC Influenza A Ag Positive (Negative) POC Influenza B Ag Negative (Negative) POC SARS CoV-2 Ag Negative (Negative) Critical Care Time Critical Care Time Critical Care Time: No Discharge Plan Discharge Clinical Impression: Influenza A Patient Disposition: Home, Self-Care Condition: Stable Instructions: How to Use a Metered-Dose Inhaler (ED), Influenza (ED) Additional Instructions: -Take strict precautions to prevent the spread of your virus. Be diligent about covering your cough (even when you are alone) and washing your hands frequently. -You may contagious until you have been symptom and/or fever free for 24 hours without fever reducing medicine -Alternate Ibuprofen and Tylenol for pain and fever relief (per package directions) -Use inhaler as needed for shortness of breath, chest tightness, coughing fits -Drink plenty of fluid - drink fluid with electrolytes such as Gatorade or other oral re-hydration solution. Avoid caffeine, which can make dehydration worse. -Get plenty of rest to help your body heal. -Use a cool mist humidifier for chest and nasal congestion. -Eat RAW honey or use cough drops to ease throat discomfort -Do not smoke or expose children to secondhand smoke -Wash your hands frequently. -Please follow-up with your primary care doctor in the next 1-2 days if your symptoms do not improve. -If you have any worsening of symptoms or any other concerns please go to the ED immediately. -Please take medications as prescribed and continue taking your home medications as usual. Patient Language: Yemeni Prescriptions: New albuterol sulfate 90 mcg/actuation HFA aerosol inhaler 2 puff INHALATION QID PRN (Reason: shortness of breath or wheezing) Qty: 8.5 0RF Follow-up/Referrals: PHYSICIAN,DIRECTOR OF EDUCATION [Primary Care Provider] - Stand Alone Forms: Work/School Release IP Time of Disposition: 10:11
== END 2024-04-18 10:15 | disposition home or self-care (01) ==
PROVIDERS: Emergency Provider Nurse Practitioner
DX: O98.512 Other viral diseases complicating pregnancy, second trimester (principal); J10.1 Influenza due to other identified influenza virus with other respiratory manifestations; Z3A.24 24 weeks gestation of pregnancy; Z20.822 Contact with and (suspected) exposure to COVID-19
CPT/HCPCS: 87426; 87804; 99213; G0463